=== PATIENT | female | born 1970 | race Caucasian/White ===

== ENCOUNTER 2019-12-01 16:27 | Inpatient (IN) ==
[2019-12-01] MEDS ORDERED: LR 1000 ML IV 1,000 ML IV ONE (17:08)
[2019-12-01] MEDS: LR 1000 ML IV 1,000 ML IV SCH (17:10)
[2019-12-01 17:50] LABS: BASOPHILS # (AUTO) 0.1 X10^3/uL (0.0-0.1); BASOPHILS % (AUTO) 0.7 % (0.2-1.0); EOSINOPHILS # (AUTO) 0.1 x10^3/uL (0.0-0.2); EOSINOPHILS % (AUTO) 0.4 % (0.9-2.9); HEMATOCRIT 22.3 % (36.0-47.0); LYMPHOCYTES # (AUTO) 2.4 X10^3/uL (1.3-2.9); MEAN CORPUSCULAR HEMOGLOBIN 18.7 pg (27.0-34.0); MEAN CORPUSCULAR HGB CONC 29.1 g/dL (33.0-35.0); MEAN CORPUSCULAR VOLUME 64.4 fL (80.0-100.0); MEAN PLATELET VOLUME 6.8 fL (7.4-11.0); MONOCYTES % (AUTO) 7.7 % (0.0-13.0); NEUTROPHILS # (AUTO) 9.9 x10^3/uL (2.2-4.8); NEUTROPHILS % (AUTO) 73.2 % (42.0-75.0); RED BLOOD COUNT 3.47 X10^6/uL (3.5-5.4); WHITE BLOOD COUNT 13.5 X10^3/uL (3.6-10.0)
[2019-12-01 17:56] VITALS: BMI 16.7
[2019-12-01 17:59] LABS: HEMOGLOBIN 6.5 g/dL (12.0-16.0)
[2019-12-01 18:11] LABS: BAND NEUTROPHILS % 4 % (0-10); METAMYELOCYTES % 3; MYELOCYTES % 1
[2019-12-01 18:13] LABS: ANISOCYTOSIS 3+; HYPOCHROMASIA 3+; MICROCYTOSIS 2+; PLATELET MORPHOLOGY COMMENT NORMAL (NORMAL); POIKILOCYTOSIS SLIGHT
[2019-12-01 18:14] LABS: TARGET CELLS PRESENT
[2019-12-01 18:18] LABS: ALANINE AMINOTRANSFERASE 13 Units/L (12-78); ALKALINE PHOSPHATASE 138 Units/L (46-116); ASPARTATE AMINO TRANSFERASE 16 Units/L (15-37); BLOOD UREA NITROGEN 10 mg/dL (7-18); CALCIUM 8.3 mg/dL (8.5-10.1); CARBON DIOXIDE 28.1 mmol/L (21-32); CHLORIDE 99 mmol/L (98-107); COR CA(FOR HYPOALB) 9.1 mg/dL (8.5-10.1); CREATININE 0.71 mg/dL (0.55-1.02); SODIUM 137 mmol/L (136-145); TOTAL PROTEIN 7.6 g/dL (6.4-8.2); TSH (3RD GENERATION) 4.995 uIU/mL (0.358-3.74); eGFR NON BLACK RACES > 60 (>60)
[2019-12-01 18:19] LABS: PLATELET COUNT 2001 X10^3/uL (150.0-450.0)
[2019-12-01 18:32] LABS: IRON 10 ug/dL (50-175)
[2019-12-01] MEDS ORDERED: NS 500 ML IV 500 ML IV ONE (19:34)
[2019-12-01] MEDS: PROTONIX INJ 40 MG VIAL IVP SCH (20:00)
[2019-12-01] MEDS: CYTOTEC PO SCH (20:18)
[2019-12-02] MEDS: LR 1000 ML IV 1,000 ML IV SCH ×3 (05:56→19:00)
[2019-12-02] MEDS: SYNTHROID 150 mcg TAB PO SCH ×2 (05:56→10:26)
[2019-12-02 06:24] LABS: HEMOGLOBIN 9.5 g/dL (12.0-16.0)
[2019-12-02 07:20] LABS: BASOPHILS # (AUTO) 0.1 X10^3/uL (0.0-0.1); BASOPHILS % (AUTO) 0.8 % (0.2-1.0); EOSINOPHILS # (AUTO) 0.1 x10^3/uL (0.0-0.2); EOSINOPHILS % (AUTO) 0.7 % (0.9-2.9); HEMATOCRIT 30.1 % (36.0-47.0); HEMOGLOBIN 9.6 g/dL (12.0-16.0); LYMPHOCYTES # (AUTO) 1.4 X10^3/uL (1.3-2.9); LYMPHOCYTES % (AUTO) 13.3 % (21.0-51.0); MEAN CORPUSCULAR HEMOGLOBIN 23.4 pg (27.0-34.0); MEAN CORPUSCULAR HGB CONC 31.8 g/dL (33.0-35.0); MEAN CORPUSCULAR VOLUME 73.7 fL (80.0-100.0); MEAN PLATELET VOLUME 7.3 fL (7.4-11.0); MONOCYTES # (AUTO) 1.1 x10^3/uL (0.3-0.8); MONOCYTES % (AUTO) 10.5 % (0.0-13.0); NEUTROPHILS % (AUTO) 74.7 % (42.0-75.0); RED BLOOD COUNT 4.08 X10^6/uL (3.5-5.4); RED CELL DISTRIBUTION WIDTH 31.9 % (11.6-16.5); WHITE BLOOD COUNT 10.7 X10^3/uL (3.6-10.0)
[2019-12-02 07:27] LABS: ALANINE AMINOTRANSFERASE 13 Units/L (12-78); ALBUMIN 2.4 g/dL (3.4-5.0); ALKALINE PHOSPHATASE 115 Units/L (46-116); ASPARTATE AMINO TRANSFERASE 16 Units/L (15-37); BLOOD UREA NITROGEN 8 mg/dL (7-18); CALCIUM 7.6 mg/dL (8.5-10.1); CHLORIDE 103 mmol/L (98-107); COR CA(FOR HYPOALB) 8.9 mg/dL (8.5-10.1); CREATININE 0.69 mg/dL (0.55-1.02); PLATELET COUNT 1323 X10^3/uL (150.0-450.0); SODIUM 137 mmol/L (136-145); TOTAL PROTEIN 6.3 g/dL (6.4-8.2); eGFR NON BLACK RACES > 60 (>60)
[2019-12-02] MEDS ORDERED: XYLOCAINE-MPF 1% ONE (08:02)
[2019-12-02] MEDS ORDERED: DIPRIVAN VIAL 20 ML ONE (08:02)
[2019-12-02] MEDS ORDERED: NS 100 ML IV 100 ML with VENOFER 100 MG IV NR ×2 (08:41)
[2019-12-02 09:02] LABS: ANISOCYTOSIS 3+; HYPOCHROMASIA 1+; PLATELET MORPHOLOGY COMMENT NORMAL (NORMAL)
--- NOTE | 2019-12-02 09:05 | OR.IMMED ---
Immediate Post-Op Note - Immediate Post-Op Note Pre-Op Diagnosis: anemia, GI bleeding, abdominal pain. Post-Op Diagnosis: Gastroparesis with large amount of retained food particles . duonenal ulcers bulb with deformity , no active bleeding . esopgagitis . the exam was limited because of large retained material. Procedure: EGD with Bx Surgeon/Roller [employer] Tender: Pao Specimens Removed: antrum Drains: NONE (add elizabeth , Nilesflucan , obtain abdominal CT , repeat EGD in the future with longer period of fasting .)
[2019-12-02] MEDS: PROTONIX INJ 40 MG VIAL IVP SCH ×2 (09:36→21:30)
[2019-12-02] MEDS: CYTOTEC PO SCH ×2 (09:36→21:30)
[2019-12-02] MEDS ORDERED: NS 100 ML IV 100 ML IV ONE (13:45)
[2019-12-02] MEDS: CARAFATE PO SCH ×2 (14:33→21:30)
[2019-12-02] MEDS: REGLAN INJ 10 MG VIAL IVP SCH ×2 (14:33→21:30)
--- NOTE | 2019-12-02 15:03 | CT ---
HISTORYANEMIA history of thyroid cancer and hysterectomySTUDYABDOMEN/PELVIS WITH CONCOMPARISONNoneTECHNIQUEMultiple axial images of the abdomen and pelvis were obtained from the lung bases to the pubic symphysis after the administration of IV contrast. 100 cc omni 350 IV. Dose reduction techniques including Automated Exposure Control (AEC) and adjustment of mA and kV were utilized.FINDINGSThe visualized portions of the lung bases reveal minimal atelectasis.Normal variant diminished enhancement in the bare area of the liver. Spleen is normal in size.Gallbladder wall thickening and mild pericholecystic fluid suggesting acute cholecystitis. However, gallbladder is not well-distended and appearance could be artifactual. No stones are seen. No biliary ductal dilation.No pancreatic abnormality is seen.The adrenal glands appear normal.1. cm likely simple cyst in the mid right kidney. No hydronephrosis. Ureters and bladder appear normal. Phlebolith is seen in the deep pelvis.Moderate constipation in the cecum and left side of the colon. Possible wall thickening in the hepatic flexure of the colon and proximal transverse colon could be colitis. No suggestion of small-bowel obstruction. Possible changes of duodenitis in the region of the duodenal bulb and descending duodenum. No evidence of appendicitis.No adnexal masses.Abdominal aorta is normal in size. Diffuse atherosclerotic calcifications are seen in the aorta and iliac arteries.No suspicious lymphadenopathy.No free intraperitoneal air or fluid is seen.No acute bony abnormality is seen.IMPRESSIONPossible changes of duodenitis in the duodenal bulb and descending duodenum.Gallbladder wall appears thickened with adjacent fluid suggesting cholecystitis. However gallbladder is not well distended.Mild colitis is not excluded in the hepatic flexure of the colon and proximal transverse colon.Upper GI series or endoscopy may be useful in evaluation. Right upper quadrant ultrasound following fasting may be useful to evaluate gallbladder.Electronically signed by: Jerson Hopson (Dec 02, 2019 15:01:36)
[2019-12-02 17:21] LABS: HEMATOCRIT 28.9 % (36.0-47.0); HEMOGLOBIN 9.1 g/dL (12.0-16.0)
[2019-12-03] MEDS: LR 1000 ML IV 1,000 ML IV SCH ×2 (02:25→09:01)
[2019-12-03 05:24] LABS: BASOPHILS % (AUTO) 0.4 % (0.2-1.0); EOSINOPHILS # (AUTO) 0.1 x10^3/uL (0.0-0.2); EOSINOPHILS % (AUTO) 0.6 % (0.9-2.9); HEMATOCRIT 28.2 % (36.0-47.0); LYMPHOCYTES # (AUTO) 0.9 X10^3/uL (1.3-2.9); LYMPHOCYTES % (AUTO) 8.5 % (21.0-51.0); MEAN CORPUSCULAR HEMOGLOBIN 23.3 pg (27.0-34.0); MEAN CORPUSCULAR HGB CONC 31.7 g/dL (33.0-35.0); MEAN CORPUSCULAR VOLUME 73.5 fL (80.0-100.0); MONOCYTES # (AUTO) 0.9 x10^3/uL (0.3-0.8); MONOCYTES % (AUTO) 9.4 % (0.0-13.0); NEUTROPHILS # (AUTO) 8.1 x10^3/uL (2.2-4.8); NEUTROPHILS % (AUTO) 81.1 % (42.0-75.0); RED BLOOD COUNT 3.84 X10^6/uL (3.5-5.4); RED CELL DISTRIBUTION WIDTH 32.4 % (11.6-16.5); WHITE BLOOD COUNT 10.1 X10^3/uL (3.6-10.0)
[2019-12-03 05:31] LABS: ALANINE AMINOTRANSFERASE 8 Units/L (12-78); ALBUMIN 2.3 g/dL (3.4-5.0); ALKALINE PHOSPHATASE 103 Units/L (46-116); ASPARTATE AMINO TRANSFERASE 14 Units/L (15-37); BLOOD UREA NITROGEN 5 mg/dL (7-18); CALCIUM 7.4 mg/dL (8.5-10.1); CARBON DIOXIDE 25.7 mmol/L (21-32); CHLORIDE 104 mmol/L (98-107); COR CA(FOR HYPOALB) 8.8 mg/dL (8.5-10.1); CREATININE 0.51 mg/dL (0.55-1.02); SODIUM 138 mmol/L (136-145); eGFR NON BLACK RACES > 60 (>60)
[2019-12-03] MEDS: CARAFATE PO SCH (05:41)
[2019-12-03] MEDS: REGLAN INJ 10 MG VIAL IVP SCH (05:41)
[2019-12-03] MEDS: SYNTHROID 150 mcg TAB PO SCH (05:42)
[2019-12-03 06:02] LABS: PLATELET COUNT 1024 X10^3/uL (150.0-450.0)
[2019-12-03 06:04] LABS: ANISOCYTOSIS 3+; HYPOCHROMASIA 2+; PLATELET MORPHOLOGY COMMENT NORMAL (NORMAL)
[2019-12-03] MEDS ORDERED: NS 100 ML IV 100 ML with VENOFER 100 MG IV NR ×2 (08:00)
[2019-12-03] MEDS: CYTOTEC PO SCH (09:02)
[2019-12-03] MEDS: PROTONIX INJ 40 MG VIAL IVP SCH (09:02)
[2019-12-03] MEDS ORDERED: LINZESS PO ONE (09:34)
[2019-12-03] MEDS ORDERED: COLACE CAP 100 MG PO ONE (09:34)
[2019-12-03 14:22] VITALS: BP 90/56
== END 2019-12-03 13:05 | disposition home or self-care (01) | DRG 812 ==
LOC: ICU 16:38
PROVIDERS: ADMIT Obstetrics & Gynecology Obstetrics; ATTEND Obstetrics & Gynecology Obstetrics
DX: D50.0 Iron deficiency anemia secondary to blood loss (chronic); Z79.899 Other long term (current) drug therapy; E03.8 Other specified hypothyroidism; K20.8 Other esophagitis; Q43.9 Congenital malformation of intestine, unspecified; D47.3 Essential (hemorrhagic) thrombocythemia; K59.09 Other constipation; B37.81 Candidal esophagitis; K31.84 Gastroparesis; K26.9 Duodenal ulcer, unspecified as acute or chronic, without hemorrhage or perforation
CPT/HCPCS: 36415; 36430; 74177; 80053; 82607; 82728; 82746; 83540; 84443; 84466; 85014; 85018; 85025; 86850; 86900; 86901; 86922; A4216; A4222; C9113; J1756; J2704; J2765; J7040; J7050; J7120; P9016; S0191

== ENCOUNTER 2020-04-05 11:45 | Observation (INO) ==
[2020-04-05] MEDS ORDERED: NS 1000 ML 1,000 ML IV ONE ×2 (11:59→16:16)
[2020-04-05] MEDS ORDERED: NS 1000 ML 1,000 ML ONE ×2 (12:09→16:21)
[2020-04-05 12:25] LABS: BASOPHILS % (AUTO) 0.5 % (0.2-1.0); EOSINOPHILS % (AUTO) 0.1 % (0.9-2.9); HEMATOCRIT 34.2 % (36.0-47.0); HEMOGLOBIN 11.4 g/dL (12.0-16.0); LYMPHOCYTES % (AUTO) 17.1 % (21.0-51.0); MEAN CORPUSCULAR HEMOGLOBIN 30.8 pg (27.0-34.0); MEAN CORPUSCULAR HGB CONC 33.2 g/dL (33.0-35.0); MEAN CORPUSCULAR VOLUME 92.9 fL (80.0-100.0); MEAN PLATELET VOLUME 6.7 fL (7.4-11.0); MONOCYTES # (AUTO) 0.7 x10^3/uL (0.3-0.8); MONOCYTES % (AUTO) 11.2 % (0.0-13.0); NEUTROPHILS # (AUTO) 4.4 x10^3/uL (2.2-4.8); NEUTROPHILS % (AUTO) 71.1 % (42.0-75.0); PLATELET COUNT 391 X10^3/uL (150.0-450.0); RED BLOOD COUNT 3.68 X10^6/uL (3.5-5.4); RED CELL DISTRIBUTION WIDTH 19.3 % (11.6-16.5); WHITE BLOOD COUNT 6.1 X10^3/uL (3.6-10.0)
[2020-04-05] MEDS ORDERED: ZOFRAN INJ 4 MG VIAL IVP ONE ×2 (12:30→16:16)
[2020-04-05] MEDS ORDERED: ZOFRAN INJ 4 MG VIAL ONE ×2 (12:31→16:21)
[2020-04-05 12:46] LABS: ALANINE AMINOTRANSFERASE 28 Units/L (12-78); ALBUMIN 2.1 g/dL (3.4-5.0); ALKALINE PHOSPHATASE 90 Units/L (46-116); AMYLASE 23 Units/L (25-115); ASPARTATE AMINO TRANSFERASE 22 Units/L (15-37); BLOOD UREA NITROGEN 13 mg/dL (7-18); CALCIUM 7.2 mg/dL (8.5-10.1); CARBON DIOXIDE 29.8 mmol/L (21-32); CHLORIDE 103 mmol/L (98-107); COR CA(FOR HYPOALB) 8.7 mg/dL (8.5-10.1); CREATININE 0.63 mg/dL (0.55-1.02); LIPASE 62 Units/L (73-393); SODIUM 137 mmol/L (136-145); TOTAL PROTEIN 5.2 g/dL (6.4-8.2); TSH (3RD GENERATION) 27.044 uIU/mL (0.358-3.74); eGFR NON BLACK RACES > 60 (>60)
--- NOTE | 2020-04-05 12:53 | ED.ABDFE ---
HPI Time Seen Time Seen by Provider: 04/05/20 11:59 PCP Primary Care Physician: cas Romero [facility] Chief Complaint Comments: A 49 y/o female directed to be seen in the ED from her PCP's office. She c/o months of epigastric and RUQ pain. In the epiga strium, the pain is sharp and on the RUQ it's a dull ache. There is no exacerbating factors. She has associated nausea and vomiting. She also c/o weight loss despite adequate meal intake. Chief Complaint:: pt stated she went to her pcp and was told to come to the er for abd pain, nausea and vomiting and diarrhea. she stated the diarrhea has been going on for over a month. she has chronic abd pain but today the pain is worse. COVID-19 Coronavirus risk:travel/contact w/high risk person: No Has patient experienced Coronavirus symptoms: No Reviewed Nurses Notes Review: Yes Source History Provided: Patient Mode of arrival Mode of Arrival: Ambulatory Timing Onset of Chief Complaint: 02/02/20 Came on: Gradually Location Location: RUQ and Epigastric Quality Quality: Aching and Sharp Context History of: Abdominal surgery Modifying factors Worsening Factors: Nothing Improving Factors: Nothing Associated signs and symptoms Associated Signs and Symptoms: Nausea, Vomiting and Diarrhea PMH PMH Past Medical History: Yes Past Medical History: Hyperthyroidism Past Surgical History: Yes Surgical History: Hysterectomy and Thyroidectomy Family History History of Family Medical Conditions: Yes Family Medical History: Hypertension Social History Does patient currently use any type of tobacco product: Yes Have you used tobacco products in the last 12 months: Yes Type of Tobacco Use: Cigarettes How many years tobacco product used: 15 Does any household member use tobacco: Yes Alcohol Use: None Do you use any recreational Drugs:: No Lives With: Family Lives Where: Home Travel Risk Coronavirus risk:travel/contact w/high risk person: No Has patient experienced Coronavirus symptoms: No Infectious screening In the last 2 months have you had wt loss of >10#?: NO Have you had fever, night sweats or hemotysis?: No Have you traveled outside the country in the last 6 months?: No Isolation: Standard ROS Review of Systems Constitutional: No Symptoms Reported Eyes: No Symptoms Reported ENTM: No Symptoms Reported Respiratoy: No Symptoms Reported Cardiovascular: No Symptoms Reported Gastrointestinal/Abdominal: Abdominal Pain (epigastric and RUQ), Diarrhea, Matthew sea and Vomiting Genitourinary: No Symptoms Reported Neurological: Depressed Musculoskeletal: No Symptoms Reported Integumentary: No Symptoms Reported Hematologic/Lymphatic: No Symptoms Reported Endocrine: No Symptoms Reported Psychiatric: No Symptoms Reported All Other Systems: Reviewed and Negative PE Vital Signs Vitals: Temperature 98.6 F Pulse Rate 92 Respiratory Rate 17 Blood Pressure [Left Arm] 110/65 Blood Pressure 90/52 O2 Sat by Pulse Oximetry 94 General Limitations: No Limitations General Appearance: Alert and In No Apparent Distress Head Head Exam: Normal Inspection, Atraumatic and Normocephalic Eyes Eye exam: Normal Appearance and EOMI ENT ENT Exam: Normal Exam, Normal Oropharynx, Normal External Ear Exam and Mucous Membranes Moist Neck Neck Exam: Normal Inspection, Full ROM and Trachea Midline Chest Chest Inspection: Normal Inspection and Symmetric Chest Wall Rise Respiratory Respiratory Exam: Normal Lung Sounds Bilat Cardiovascular Cardiovascular Exam: Regular Rate, Normal Rhythm, Normal Heart Sounds, +S1 and +S2 Abdominal Exam Abdominal Exam: Normal Inspection, Normal Bowel Sounds, Soft and Tenderness; negative Distention, Guarding, Rebound, Rigidity, Dimnished Bowel Sounds, Hyperactive Bowel Sounds, Hypoactive Bowel Sounds, Organomegaly, Trauma, Incision, Ascites, Mass, Bruit, Pulsatile Mass and Hernia Abdominal Tenderness: RUQ and Epigastrium Rectal Rectal Exam: Deferred Back Back Exam: Normal Inspection and Full ROM Extremeties Extremities Exam: Normal Inspection and Full ROM External Exam: Female: Deferred : Speculum Exam (Female): Deferred Neurologic Neurological Exam: Alert and Oriented X3 Psychiatric Psychiatric Exam: Normal Affect and Normal Mood Skin Skin Exam: Dry and Normal Color COURSE Reevaluation 1st: Improved Consultation Consultation Comments: I discussed findings with her PCP, Dr. Mantilla- he agrees with placement to OBS. The pt. was informed of admission plan. Education/Counseling Education/Counseling: Patient, Education and Counseling Educated On: Treatment, Diagnosis, Prognosis and Needs for Follow Up ROR Labs Reviewed Laboratory Results Reviewed?: Yes Result Diagrams: 04/05/20 12:17 04/05/20 12:17 Laboratory: WBC 6.1 X10^3/uL (3.6-10.0) 04/05/20 12:17 RBC 3.68 X10^6/uL (3.5-5.4) 04/05/20 12:17 Hgb 11.4 g/dL (12.0-16.0) L 04/05/20 12:17 Hct 34.2 % (36.0-47.0) L 04/05/20 12:17 MCV 92.9 fL (80.0-100.0) 04/05/20 12:17 MCH 30.8 pg (27.0-34.0) 04/05/20 12:17 MCHC 33.2 g/dL (33.0-35.0) 04/05/20 12:17 RDW 19.3 % (11.6-16.5) H 04/05/20 12:17 Plt Count 391 X10^3/uL (150.0-450.0) 04/05/20 12:17 MPV 6.7 fL (7.4-11.0) L 04/05/20 12:17 Neut % (Auto) 71.1 % (42.0-75.0) 04/05/20 12:17 Lymph % (Auto) 17.1 % (21.0-51.0) L 04/05/20 12:17 Sabine % (Auto) 11.2 % (0.0-13.0) 04/05/20 12:17 Eos % (Auto) 0.1 % (0.9-2.9) L 04/05/20 12:17 Baso % (Auto) 0.5 % (0.2-1.0) 04/05/20 12:17 Neut # (Auto) 4.4 x10^3/uL (2.2-4.8) 04/05/20 12:17 Lymph # (Auto) 1.0 X10^3/uL (1.3-2.9) L 04/05/20 12:17 Sabine # (Auto) 0.7 x10^3/uL (0.3-0.8) 04/05/20 12:17 Eos # (Auto) 0.0 x10^3/uL (0.0-0.2) 04/05/20 12:17 Baso # (Auto) 0.0 X10^3/uL (0.0-0.1) 04/05/20 12:17 Absolute Nucleated RBC 0.0 /100WBC 04/05/20 12:17 Sodium 137 mmol/L (136-145) 04/05/20 12:17 Corrected Sodium TNP 04/05/20 12:17 Potassium 3.3 mmol/L (3.5-5.1) L 04/05/20 12:17 Chloride 103 mmol/L (98-107) 04/05/20 12:17 Carbon Dioxide 29.8 mmol/L (21-32) 04/05/20 12:17 BUN 13 mg/dL (7-18) 04/05/20 12:17 Creatinine 0.63 mg/dL (0.55-1.02) 04/05/20 12:17 Est GFR (MDRD) Af Amer > 60 (>60) 04/05/20 12:17 Est GFR (MDRD) Non-Af > 60 (>60) 04/05/20 12:17 Glucose 99 mg/dL (65-99) 04/05/20 12:17 Calcium 7.2 mg/dL (8.5-10.1) L 04/05/20 12:17 Corrected Calcium 8.7 mg/dL (8.5-10.1) 04/05/20 12:17 Total Bilirubin 0.20 mg/dL (0.2-1.0) 04/05/20 12:17 AST 22 Units/L (15-37) 04/05/20 12:17 ALT 28 Units/L (12-78) 04/05/20 12:17 Alkaline Phosphatase 90 Units/L (46-116) 04/05/20 12:17 Total Protein 5.2 g/dL (6.4-8.2) L 04/05/20 12:17 Albumin 2.1 g/dL (3.4-5.0) L 04/05/20 12:17 Globulin 3.1 g/dL (2.5-4.5) 04/05/20 12:17 Albumin/Globulin Ratio 0.7 Ratio (1.1-2.1) L 04/05/20 12:17 Amylase 23 Units/L (25-115) L 04/05/20 12:17 Lipase 62 Units/L (73-393) L 04/05/20 12:17 TSH 3rd Generation 27.044 uIU/mL (0.358-3.74) H 04/05/20 12:17 Opioid Opioid Risk Tool Age (Henrique box if 16-45): No History of Preadolescent Sexual Abuse: No Total: 0 Total Score Risk Category: Low Risk Copyright: Marcello CARCAMO predicting aberrant behaviors Diagnosis Discharge Problem: Acute duodenitis, Unexplained weight loss, Hypothyroidism (acquired), Acute hypokalemia Abdominal pain Qualifiers: Abdominal location: epigastric Qualified Code(s): R10.13 - Epigastric pain ADDITIONAL NOTES Additional Notes Additional Notes: HISTORY abd pain nausea vomiting STUDY CT ABDOMEN/PELVIS WITH IV CON COMPARISON CT 12/02/2019 TECHNIQUE Multiple axial images of the abdomen and pelvis were obtained from the lung bases to the pubic symphysis after the administration of IV contrast. 100 cc Omnipaque 350 IV contrast. Dose reduction techniques including Automated Exposure Control (AEC) and adjustment of mA and kV were utilized. FINDINGS The visualized portions of the lung bases are unremarkable. Hepatomegaly and fatty infiltration of the liver. Spleen appears normal in size. Possible mild gallbladder wall thickening but this is less prominent than prior study. Mild cholecystitis is not excluded. No biliary ductal dilation. No pancreatic abnormality is seen. The adrenal glands appear normal. Stable benign-appearing cyst in the mid right kidney. No renal stones or hydronephrosis. Ureters and bladder appear normal. Phleboliths are seen in the pelvis. Marked increase in small bowel wall thickening is seen compared to prior study. No gastric wall thickening is seen but there is diffuse duodenal wall thickening, similar to prior study. Localized area of wall thickening in the ascending colon which is very closely associated with the region of the duodenum. It is difficult to exclude a duodenal ulcer in this region. Correlatio n with upper endoscopy is recommended. There is involvement of the terminal ileum and consideration should be given to Crohn's disease. Appendix is not seen but no pericecal inflammation is seen. No adnexal masses are seen. Abdominal aorta is normal in size. No suspicious lymphadenopathy. No free intraperitoneal air or fluid is seen. No acute bony abnormality is seen. IMPRESSION Duodenitis and enteritis. There are areas of uninvolved small-bowel but the terminal ileum is involved. Consideration should be given to Crohn's disease. Infectious etiology is not excluded. Possible duodenal ulcer. Correlation with upper endoscopy is recommended. Possible changes of localized colitis in the ascending colon which is very closely associated with the duodenum. Electronically signed by: Jerson Hopson (Apr 05, 2020 15:30:55)
--- NOTE | 2020-04-05 15:32 | CT ---
HISTORYabd pain nausea vomitingSTUDYCT ABDOMEN/PELVIS WITH IV CONCOMPARISONCT 12/02/2019TECHNIQUEMultiple axial images of the abdomen and pelvis were obtained from the lung bases to the pubic symphysis after the administration of IV contrast. 100 cc Omnipaque 350 IV contrast. Dose reduction techniques including Automated Exposure Control (AEC) and adjustment of mA and kV were utilized.FINDINGSThe visualized portions of the lung bases are unremarkable.Hepatomegaly and fatty infiltration of the liver. Spleen appears normal in size.Possible mild gallbladder wall thickening but this is less prominent than prior study. Mild cholecystitis is not excluded. No biliary ductal dilation.No pancreatic abnormality is seen.The adrenal glands appear normal.Stable benign-appearing cyst in the mid right kidney. No renal stones or hydronephrosis. Ureters and bladder appear normal. Phleboliths are seen in the pelvis.Marked increase in small bowel wall thickening is seen compared to prior study. No gastric wall thickening is seen but there is diffuse duodenal wall thickening, similar to prior study. Localized area of wall thickening in the ascending colon which is very closely associated with the region of the duodenum. It is difficult to exclude a duodenal ulcer in this region. Correlation with upper endoscopy is recommended. There is involvement of the terminal ileum and consideration should be given to Crohn's disease. Appendix is not seen but no pericecal inflammation is seen.No adnexal masses are seen.Abdominal aorta is normal in size.No suspicious lymphadenopathy.No free intraperitoneal air or fluid is seen.No acute bony abnormality is seen.IMPRESSIONDuodenitis and enteritis. There are areas of uninvolved small-bowel but the terminal ileum is involved. Consideration should be given to Crohn's disease. Infectious etiology is not excluded. Possible duodenal ulcer. Correlation with upper endoscopy is recommended.Possible changes of localized colitis in the ascending colon which is very closely associated with the duodenum.Electronically signed by: Jerson Hopson (Apr 05, 2020 15:30:55)
[2020-04-05] MEDS ORDERED: MORPHINE SULFATE INJ 2 MG INJ IVP ONE (16:16)
[2020-04-05] MEDS ORDERED: MORPHINE SULFATE INJ 2 MG INJ ONE (16:21)
[2020-04-05 18:01] VITALS: BMI 15.7
[2020-04-05] MEDS ORDERED: ZOFRAN INJ 4 MG VIAL IVP PRN (18:01)
[2020-04-05] MEDS ORDERED: K-RIDER 10 MEQ/NS 100 ML 10 MEQ/100 ML BAG IV ONE (18:01)
[2020-04-05] MEDS: GENTAMICIN SULF (OPHTH) OP SCH ×2 (18:30→21:14)
[2020-04-05 18:51] LABS: BASOPHILS % (AUTO) 0.4 % (0.2-1.0); EOSINOPHILS % (AUTO) 0.3 % (0.9-2.9); HEMOGLOBIN 10.6 g/dL (12.0-16.0); LYMPHOCYTES # (AUTO) 0.9 X10^3/uL (1.3-2.9); LYMPHOCYTES % (AUTO) 15.5 % (21.0-51.0); MEAN CORPUSCULAR HEMOGLOBIN 30.8 pg (27.0-34.0); MEAN CORPUSCULAR HGB CONC 33.1 g/dL (33.0-35.0); MEAN CORPUSCULAR VOLUME 93.1 fL (80.0-100.0); MEAN PLATELET VOLUME 6.8 fL (7.4-11.0); MONOCYTES # (AUTO) 0.7 x10^3/uL (0.3-0.8); MONOCYTES % (AUTO) 11.9 % (0.0-13.0); NEUTROPHILS # (AUTO) 4.3 x10^3/uL (2.2-4.8); NEUTROPHILS % (AUTO) 71.9 % (42.0-75.0); PLATELET COUNT 354 X10^3/uL (150.0-450.0); RED BLOOD COUNT 3.44 X10^6/uL (3.5-5.4); WHITE BLOOD COUNT 6.1 X10^3/uL (3.6-10.0)
[2020-04-05 19:05] LABS: ALANINE AMINOTRANSFERASE 23 Units/L (12-78); ALBUMIN 1.9 g/dL (3.4-5.0); ALKALINE PHOSPHATASE 84 Units/L (46-116); ASPARTATE AMINO TRANSFERASE 17 Units/L (15-37); BLOOD UREA NITROGEN 11 mg/dL (7-18); CARBON DIOXIDE 26.9 mmol/L (21-32); CHLORIDE 104 mmol/L (98-107); COR CA(FOR HYPOALB) 8.7 mg/dL (8.5-10.1); CREATININE 0.47 mg/dL (0.55-1.02); SODIUM 137 mmol/L (136-145); TOTAL PROTEIN 4.8 g/dL (6.4-8.2); eGFR NON BLACK RACES > 60 (>60)
[2020-04-05] MEDS: NORCO 7.5/325 MG TAB PO PRN (20:32)
[2020-04-05] MEDS: CYTOTEC PO SCH (20:32)
[2020-04-05] MEDS: XIFAXAN PO SCH (20:33)
[2020-04-06] MEDS: GENTAMICIN SULF (OPHTH) OP SCH ×6 (02:38→21:00)
[2020-04-06] MEDS: NORCO 7.5/325 MG TAB PO PRN ×3 (04:14→23:50)
[2020-04-06 05:17] LABS: BASOPHILS % (AUTO) 0.6 % (0.2-1.0); EOSINOPHILS % (AUTO) 0.5 % (0.9-2.9); HEMATOCRIT 33.9 % (36.0-47.0); LYMPHOCYTES # (AUTO) 1.1 X10^3/uL (1.3-2.9); LYMPHOCYTES % (AUTO) 16.3 % (21.0-51.0); MEAN CORPUSCULAR HEMOGLOBIN 30.6 pg (27.0-34.0); MEAN CORPUSCULAR HGB CONC 32.6 g/dL (33.0-35.0); MEAN CORPUSCULAR VOLUME 93.9 fL (80.0-100.0); MEAN PLATELET VOLUME 7.9 fL (7.4-11.0); MONOCYTES # (AUTO) 0.8 x10^3/uL (0.3-0.8); NEUTROPHILS # (AUTO) 4.7 x10^3/uL (2.2-4.8); NEUTROPHILS % (AUTO) 70.6 % (42.0-75.0); PLATELET COUNT 402 X10^3/uL (150.0-450.0); RED BLOOD COUNT 3.61 X10^6/uL (3.5-5.4); RED CELL DISTRIBUTION WIDTH 19.1 % (11.6-16.5); WHITE BLOOD COUNT 6.7 X10^3/uL (3.6-10.0)
[2020-04-06] MEDS: SYNTHROID 100 mcg TAB PO SCH (05:25)
[2020-04-06 05:30] LABS: ALANINE AMINOTRANSFERASE 25 Units/L (12-78); ALKALINE PHOSPHATASE 88 Units/L (46-116); ASPARTATE AMINO TRANSFERASE 23 Units/L (15-37); BLOOD UREA NITROGEN 11 mg/dL (7-18); CALCIUM 7.3 mg/dL (8.5-10.1); CARBON DIOXIDE 26.4 mmol/L (21-32); CHLORIDE 103 mmol/L (98-107); COR CA(FOR HYPOALB) 8.9 mg/dL (8.5-10.1); CREATININE 0.55 mg/dL (0.55-1.02); SODIUM 136 mmol/L (136-145); TOTAL PROTEIN 5.1 g/dL (6.4-8.2); eGFR NON BLACK RACES > 60 (>60)
[2020-04-06] MEDS: XIFAXAN PO SCH ×2 (08:22→20:40)
[2020-04-06] MEDS: CYTOTEC PO SCH ×2 (08:22→20:40)
[2020-04-06] MEDS ORDERED: PROTONIX INJ 40 MG VIAL IVP SCH (09:00)
[2020-04-06] MEDS: ZOFRAN INJ 4 MG VIAL IVP PRN ×2 (10:28→19:33)
[2020-04-06] MEDS ORDERED: D5 LR 1000 ML 1,000 ML IV ONE (14:08)
[2020-04-06] MEDS ORDERED: NS 500 ML IV 500 ML IV ONE (14:12)
[2020-04-06] MEDS ORDERED: DIPRIVAN VIAL 20 ML ONE (14:17)
[2020-04-06] MEDS: PROTONIX INJ 40 MG VIAL IVP SCH (20:40)
[2020-04-07] MEDS: GENTAMICIN SULF (OPHTH) OP SCH ×3 (02:37→10:50)
[2020-04-07] MEDS: ZOFRAN INJ 4 MG VIAL IVP PRN (04:00)
[2020-04-07] MEDS: SYNTHROID 100 mcg TAB PO SCH (05:45)
[2020-04-07 08:13] VITALS: BP 89/57
[2020-04-07] MEDS: XIFAXAN PO SCH (08:41)
[2020-04-07] MEDS: PROTONIX INJ 40 MG VIAL IVP SCH (08:41)
[2020-04-07] MEDS: CYTOTEC PO SCH (08:42)
[2020-04-07] MEDS: NORCO 7.5/325 MG TAB PO PRN (08:45)
== END 2020-04-07 11:00 | disposition home or self-care (01) ==
LOC: ER 11:46 → MED/SURG 11:46
PROVIDERS: ADMIT Obstetrics & Gynecology Obstetrics; ATTEND Obstetrics & Gynecology Obstetrics
DX: E03.8 Other specified hypothyroidism; K52.89 Other specified noninfective gastroenteritis and colitis; R10.84 Generalized abdominal pain; E86.0 Dehydration; E87.6 Hypokalemia; R10.13 Epigastric pain; K44.9 Diaphragmatic hernia without obstruction or gangrene; K29.00 Acute gastritis without bleeding; R63.4 Abnormal weight loss; K29.80 Duodenitis without bleeding
CPT/HCPCS: 36415; 74177; 80053; 82150; 83690; 84443; 85025; 87635; 96360; 96361; 96365; 96367; 96374; 96375; 99284; A4222; C9113; G0378; J2270; J2405; J3480; J7030; J7121; S0191